=== PATIENT | female | born 1985 | race Caucasian/White ===

== ENCOUNTER 2018-11-15 21:15 | Emergency (ER) | payer SELFPAY ==
[2018-11-15 21:23] VITALS: BP 125/86; PULSE 83; TEMP 98.1; BMI 28.3
[2018-11-15 21:41] LABS: URINE APPEARANCE CLEAR; URINE BILIRUBIN NEGATIVE (NEGATIVE); URINE COLOR YELLOW; URINE GLUCOSE (UA) NEGATIVE (NEGATIVE); URINE KETONE NEGATIVE (NEGATIVE); URINE LEUK ESTERASE 2+ (NEGATIVE); URINE NITRITE NEGATIVE (NEGATIVE); URINE PROTEIN NEGATIVE (NEGATIVE); URINE UROBILINOGEN 0.2 mg/dL (0.2-1.0)
--- NOTE | 2018-11-15 22:04 | PDOC ---
History of Present Illness - General Chief Complaint: Urinary Problem Stated Complaint: POSSIBLE UTI Time Seen by Provider: 11/15/18 21:45 History Source: Patient Exam Limitations: No Limitations - History of Present Illness Travel History: No Initial Comments: 11/15/18 22:02 HISTORY OF PRESENT ILLNESS: 33-year-old woman past medical history of multiple urinary tract infections presents emergency department for evaluation of dysuria and urinary frequency for the past 2 days. Patient reports this is usually how her urinary tract infection start. Patient denies any fevers, chills , abdominal pain, nausea, vomiting, flank pain, hematuria, vaginal bleeding, vaginal discharge, constipation or diarrhea. No recent travel or sick contacts. PAST MEDICAL HISTORY: Denies past medical history SURGICAL HISTORY: Denies ALLERGIES: No known drug allergies REVIEW OF SYSTEMS General/Constitutional: Denies fever or chills. Denies weakness, weight change. HEENT: Denies change in vision. Denies ear pain or discharge. Denies sore throat. Cardiovascular: Denies chest pain or shortness of breath. Respiratory: Denies cough, wheezing, or hemoptysis. Gastrointestinal: Denies nausea, vomiting, diarrhea or constipation. Denies rectal bleeding. Genitourinary:see HPI Musculoskeletal: Denies joint or muscle swelling or pain. Denies neck or back pain. Skin and breasts: Denies rash or easy bruising. Neurologic: Denies headache, vertigo, loss of consciousness, or loss of sensation. Psychiatric: Denies depression or anxiety. Endocrine: Denies increased thirst. Denies abnormal weight change. Hematologic/Lymphatic: Denies anemia, easy bleeding, or history of blood clots. Allergic/Immunologic: Denies hives or skin allergy. Denies latex allergy. PHYSICAL EXAM General Appearance: Well-appearing, appropriately dressed. No apparent distress , no intoxication. Respiratory/Chest: Lungs CTAB. No shortness of breath, chest tenderness, respiratory distress, accessory muscle use. No crackles, rales, rhonchi, stridor , wheezing, dullness Cardiovascular: RRR. S1, S2. No JVD, murmur, bradycardia, tachycardia. Gastrointestinal/Abdominal: Normal bowel sounds. Abdomen soft, non-distended. No tenderness or rebound tenderness. No organomegaly, pulsatile mass, guarding, hernia, hepatomegaly, splenomegaly. No CVAT. Past History - Past Medical History Allergies/Adverse Reactions: Allergies Allergy/AdvReac Type Severity Reaction Status Date / Time No Known Allergies Allergy Unverified 03/09/16 09:56 Home Medications: Ambulatory Orders Nitrofurantoin Monohyd/M-Cryst [Macrobid -] 100 mg PO BID #14 capsule 11/15/18 Phenazopyridine HCl [Pyridium -] 100 mg PO PC #6 tablet 11/15/18 Cancer: No Cardiac Disorders: No CVA: No COPD: No CHF: No - Suicide/Smoking/Psychosocial Hx Smoking History: Never smoked *Physical Exam - Vital Signs Last Vital Signs Temp Pulse Resp BP Pulse Ox 98.1 F 83 20 125/86 98 11/15/18 21:18 11/15/18 21:18 11/15/18 21:18 11/15/18 21:18 11/15/18 21:18 ED Treatment Course - ADDITIONAL ORDERS Additional order review: Laboratory Results 11/15/18 11/15/18 21:24 21:24 Urine Color Yellow Urine Appearance Clear Urine pH 7.0 Ur Specific [place] 1.002 L Urine Protein Negative Urine Glucose (UA) Negative Urine Ketones Negative Urine Blood Negative Urine Nitrite Negative Urine Bilirubin Negative Urine Urobilinogen 0.2 Ur Leukocyte Esterase 2+ H Urine HCG, Qual Negative Medical Decision Making - Medical Decision Making 11/15/18 22:03 A/P: 33-year-old woman with urinary tract infection symptoms for 2 days No systemic or ascending signs of infection Urinalysis, urine , urine culture Reassess 11/15/18 22:32 Urinalysis is not suggestive of infection but is patient has had frequent UTIs with similar onset of symptoms I will treat with Macrobid as outpatient. *DC/Admit/Observation/Transfer Diagnosis at time of Disposition: Cystitis - Discharge Dispostion Disposition: HOME Condition at time of disposition: Stable Decision to Admit order: No - Prescriptions Prescriptions: Nitrofurantoin Monohyd/M-Cryst [Macrobid -] 100 mg PO BID #14 capsule Phenazopyridine HCl [Pyridium -] 100 mg PO PC #6 tablet - Referrals - Patient Instructions Additional Instructions: Rest, drink lots of fluids: Teas, water, soups, Pedialyte Saltwater gargles Steamy showers/seem to face break up mucus Avoid contact with others until fevers and cough resolved Lots of handwashing and good hygiene Continue [id number] medications for symptomatic relief Tylenol or Motrin for fever and pain Followup with private physician in one to 2 days as needed Return to emergency department for worsened symptoms, fevers, dehydration El rehana gaitanos lquidos: ts, agua, sopas, Pedialyte grgaras de agua salada Duchas Steamy / parecen enfrentar aflojar la mucosidad Evite el contacto con otras personas hasta que la fiebre y la tos resueltos Un montn de lavado de neema y la higiene Continuar isda-[id number] medicamentos para el alivio sintomtico Tylenol o Motrin para la fiebre y el dolor Followup con el [facility] en [place] o 2 mason segn sea necesario Regresar a urgencias por sntomas empeoraron, fiebres, deshidratacin - Post Discharge Activity
[2018-11-15 22:26] LABS: EPI CELLS 5 /HPF (0-5/HPF); HYALINE CASTS 0 /lpf (0-8); URINE BACTERIA FEW /hpf (NEGATIVE); URINE RBC 0 /hpf (0-4)
== END 2018-11-15 22:39 | disposition home or self-care (01) ==
LOC: JER 21:15 → JERFT 21:15
DX: N30.00 Acute cystitis without hematuria (principal); Z87.442 Personal history of urinary calculi
CPT/HCPCS: 81003; 84703; 87086; 99282-25

== ENCOUNTER 2019-03-19 17:31 | Emergency (ER) | payer SELFPAY ==
[2019-03-19 17:35] VITALS: TEMP 97.9; BMI 32.4
--- NOTE | 2019-03-19 18:06 | PDOC ---
History of Present Illness - History of Present Illness Initial Comments: 33 year old female with PMH of ovarian cysts presenting with epigastric and right upper quadrant pain radiating to her posterior right mid back for the past few days. States that she has a sharp RUQ/ epigastric pain worse with food and better when not eating. Denies any urinary symptoms or possibility of as she has an IUD. Although she does state that she has some irregular periods since having the IUD implanted. She has taken ibuporfen for her pain but states that it has made it worse. Denies fevers, chills, bad taste in mouth, burning in her throat, nausea, vomiting, diarrhea. 03/19/19 18:25 <Jenniffer Grullon - Last Filed: 03/19/19 18:25> <Floyd Velasquez - Last Filed: 03/19/19 21:27> - General Chief Complaint: Pain Stated Complaint: ABD PAIN Time Seen by Provider: 03/19/19 18:06 Past History - Past Medical History Cancer: No Cardiac Disorders: No CVA: No COPD: No CHF: No - Psycho Social/Smoking Cessation Hx Smoking History: Never smoked Information on smoking cessation initiated: No Hx Alcohol Use: No Drug/Substance Use Hx: No Substance Use Type: None <Jenniffer Grullon - Last Filed: 03/19/19 18:25> <Floyd Velasquez - Last Filed: 03/19/19 21:27> - Past Medical History Allergies/Adverse Reactions: Allergies Allergy/AdvReac Type Severity Reaction Status Date / Time No Known Allergies Allergy Unverified 03/19/19 17:35 Home Medications: Ambulatory Orders Nitrofurantoin Monohyd/M-Cryst [Macrobid -] 100 mg PO BID #14 capsule 11/15/18 Phenazopyridine HCl [Pyridium -] 100 mg PO PC #6 tablet 11/15/18 Review of Systems - Review of Systems Constitutional: No: See HPI, Chills, Diaphoresis, Fever HEENTM: No: Eye Pain, Blurred Vision, Tearing Respiratory: No: Cough, Orthopnea, Shortness of Breath Cardiac (ROS): No: Chest Pain, Edema, Irregular Heart Rate ABD/GI: No: Constipated, Diarrhea, Nausea, Vomiting : No: Burning, Dysuria, Discharge Musculoskeletal: No: Back Pain, Joint Pain <Ali,Khameinei - Last Filed: 03/19/19 18:25> *Physical Exam - Vital Signs Last Vital Signs Temp Pulse Resp BP Pulse Ox 97.9 F 86 17 136/85 99 03/19/19 17:33 03/19/19 17:33 03/19/19 17:33 03/19/19 17:33 03/19/19 17:33 <Jenniffer Grullon - Last Filed: 03/19/19 18:25> - Vital Signs Last Vital Signs Temp Pulse Resp BP Pulse Ox 97.9 F 86 17 136/85 99 03/19/19 17:33 03/19/19 17:33 03/19/19 17:33 03/19/19 17:33 03/19/19 17:33 <Esperanza Velasquezis - Last Filed: 03/19/19 21:27> ED Treatment Course - LABORATORY CBC & Chemistry Diagram: 03/19/19 18:35 03/19/19 18:35 - ADDITIONAL ORDERS Additional order review: Laboratory Results 03/19/19 03/19/19 03/19/19 18:35 18:35 18:35 PT with INR 12.40 INR 1.05 Sodium 139 Potassium 4.3 Chloride 109 H Carbon Dioxide 25 Anion Gap 5 L BUN 10.9 Creatinine 0.7 Est GFR (CKD-EPI)AfAm 133.81 Est GFR (CKD-EPI)NonAf 115.45 Random Glucose 81 Calcium 9.4 Total Bilirubin 0.2 AST 22 ALT 31 Alkaline Phosphatase 71 Total Protein 7.8 Albumin 4.2 Lipase 233 Urine Color Urine Appearance Urine pH Ur Specific [place] Urine Protein Urine Glucose (UA) Urine Ketones Urine Blood Urine Nitrite Urine Bilirubin Urine Urobilinogen Ur Leukocyte Esterase Urine WBC (Auto) Urine RBC (Auto) Urine Casts (Auto) U Epithel Cells (Auto) Urine Bacteria (Auto) Urine HCG, Qual Blood Type A POSITIVE Antibody Screen Negative 03/19/19 03/19/19 18:35 18:35 PT with INR INR Sodium Potassium Chloride Carbon Dioxide Anion Gap BUN Creatinine Est GFR (CKD-EPI)AfAm Est GFR (CKD-EPI)NonAf Random Glucose Calcium Total Bilirubin AST ALT Alkaline Phosphatase Total Protein Albumin Lipase Urine Color Yellow Urine Appearance Clear Urine pH 5.5 D Ur Specific [place] 1.005 L Urine Protein Negative Urine Glucose (UA) Negative Urine Ketones Negative Urine Blood 2+ H Urine Nitrite Negative Urine Bilirubin Negative Urine Urobilinogen 0.2 Ur Leukocyte Esterase Trace Urine WBC (Auto) 4 Urine RBC (Auto) 2 Urine Casts (Auto) 0 U Epithel Cells (Auto) 0.8 Urine Bacteria (Auto) 42.3 Urine HCG, Qual Negative Blood Type Antibody Screen 03/19/19 18:35 RBC 4.84 MCV 85.4 MCHC 32.7 RDW 14.0 MPV 9.8 Neutrophils % 65.9 Lymphocytes % 24.0 Monocytes % 6.6 Eosinophils % 3.1 Basophils % 0.4 - Medications Given in the ED: ED Medications Discontinued Medications Generic Name Dose Route Start Last Admin Trade Name Freq PRN Reason Stop Dose Admin Al Hydroxide/Mg Hydroxide 30 ml 03/19/19 18:24 03/19/19 18:47 Mylanta Oral Suspension - PO 03/19/19 18:25 30 ml ONCE ONE Administration Famotidine/Sodium Chloride 20 mg in 50 mls @ 100 mls/hr 03/19/19 18:24 18:47 Pepcid 20 Mg Premixed Ivpb - IVPB 03/19/19 18:53 100 mls/hr ONCE ONE Administration <Floyd Velasquez - Last Filed: 03/19/19 21:27> Medical Decision Making - Medical Decision Making 33 year old female with PMH of ovarian cyst removal presenting with ruq pain and epigastric pain after food. Although abdomen is non-tender, this is most concerning for cholelithiasis vs. gastritis. Bedside US positive for choleliths. 03/19/19 18:32 <Jenniffer Grullon - Last Filed: 03/19/19 18:25> Discharge <Jenniffer Grullon - Last Filed: 03/19/19 18:25> - Discharge Information Problems reviewed: Yes <Floyd Velasquez - Last Filed: 03/19/19 21:27> - Discharge Information Clinical Impression/Diagnosis: Epigastric pain Condition: Stable Disposition: HOME - Follow up/Referral Referrals: Romie Wick MD [Staff Physician] - - Patient Discharge Instructions Patient Printed Discharge Instructions: DI for Epigastric Pain Additional Instructions: take pepcid once fdaily, follow up with I. return immediately for worsening pain. Print Language: [place]
[2019-03-19] MEDS ORDERED: FAMOTIDINE 20 MG/50 ML IVPB 20 MG/50 ML MG IVPB ONE ×2 (18:24→18:43)
[2019-03-19] MEDS ORDERED: MAG HYDROX/AL HYDROX/SIMETH 30 ML UNIT-DOSE CUP PO ONE (18:24)
[2019-03-19] MEDS ORDERED: MAG HYDROX/AL HYDROX/SIMETH 30 ML UNIT-DOSE CUP ONE (18:42)
--- NOTE | 2019-03-19 18:49 | PDOC ---
Documentation entered by Sangita Maldonado SCRIBE, acting as scribe for Floyd Velasquez MD. Floyd Velasquez MD: This documentation has been prepared by the Joel schultz Adrianna, SCRIBE, under my direction and personally reviewed by me in its entirety. I confirm that the documentation accurately reflects all work, treatment, procedures, and medical decision making performed by me. Attending Attestation - Resident Resident Name: Jenniffer Grullon - ED Attending Attestation I have performed the following: I have examined & evaluated the patient, The case was reviewed & discussed with the resident, I agree w/resident's findings & plan, Exceptions are as noted - HPI HPI: The patient is a 33 year old female, with a significant PMH of ovarian cysts, who presents to the ED for evaluation of abdominal pain for a few days. Patient complains of sharp pain most prominent at the epigastric and RUQ region, that radiates to the right-side of her mid back. She endorses associated nausea and NBNB vomit, and notes her pain is exacerbated with eating and alleviated with not eating. Patient notes she has had irregular bleeding secondary to her IUD implantation. Otherwise, denies any acute complaints. Allergies: NKA, NKDA Surgical History: None reported Social History: Denies EtOH, tobacco, or illicit drug use - Physicial Exam PE: 03/19/19 18:47 Patient is awake and alert, well-nourished, in minimal distress Normocephalic, atraumatic PERRLA, EOMI, no scleral icterus CTA RRR Abdomen soft, nondistended, minimal epigastric and right upper quadrant tenderness to deep palpation, Hartmann's is negative Negative CVA tenderness bilaterally - Medical Decision Making 03/19/19 18:49 33-year-old female presents with epigastric and right upper quadrant pain, postprandial, with nausea and nonbloody, nonbilious vomiting. Patient is afebrile and nontoxic-appearing. DD is cholelithiasis versus cholecystitis versus gastritis. Will obtain CBC/CMP/lipase will obtain right upper quadrant ultrasound. Will reassess. Will hydrate. 03/19/19 21:24 Patient reassessed. Patient is resting comfortably. Serial abdominal exams reveal no focal tenderness at this time. Patient tolerates p.o. CBC/CMP within normal limit. Lipase is negative. Right upper quadrant ultrasound reveals no evidence of gallstones. Will discharge patient with Pepcid with GI follow-up.
[2019-03-19 19:16] LABS: BASO % 0.4 % (0-2.0); EOS % 3.1 % (0-4.5); HEMATOCRIT 41.4 % (32.4-45.2); HEMOGLOBIN 13.5 GM/dL (10.7-15.3); MCH 27.9 pg (25.7-33.7); MCHC 32.7 g/dl (32.0-36.0); MEAN CELL VOLUME 85.4 fl (80-96); MEAN PLT VOLUME 9.8 fl (7.5-11.1); MONO % 6.6 % (3.8-10.2); NEUT % 65.9 % (42.8-82.8); PLATELET COUNT 322 K/MM3 (134-434); RBC 4.84 M/mm3 (3.60-5.2)
[2019-03-19 19:21] LABS: EPI CELLS 0.8 /HPF (0-5/HPF); HYALINE CASTS 0 /lpf (0-8); PH,URINE 5.5 (5.0-8.0); URINE APPEARANCE CLEAR; URINE BACTERIA 42.3 /hpf (NEGATIVE); URINE BILIRUBIN NEGATIVE (NEGATIVE); URINE COLOR YELLOW; URINE GLUCOSE (UA) NEGATIVE (NEGATIVE); URINE KETONE NEGATIVE (NEGATIVE); URINE LEUK ESTERASE TRACE (NEGATIVE); URINE NITRITE NEGATIVE (NEGATIVE); URINE PROTEIN NEGATIVE (NEGATIVE); URINE RBC 2 /hpf (0-4); URINE UROBILINOGEN 0.2 mg/dL (0.2-1.0); URINE WBC 4 /hpf (0-5)
[2019-03-19 19:24] LABS: INR 1.05 (0.83-1.09); PROTHROMBIN TIME (PATIENT) 12.4 SEC (9.7-13.0)
[2019-03-19 19:45] LABS: ALBUMIN 4.2 g/dl (3.4-5.0); BILIRUBIN,TOTAL 0.2 mg/dL (0.2-1); BLOOD UREA NITROGEN 10.9 mg/dL (7-18); CALCIUM 9.4 mg/dL (8.5-10.1); CREATININE 0.7 mg/dL (0.55-1.3); POTASSIUM 4.3 mmol/L (3.5-5.1); TOT PROT 7.8 g/dl (6.4-8.2)
[2019-03-19 21:34] VITALS: BP 130/88; PULSE 80
== END 2019-03-19 21:45 | disposition home or self-care (01) ==
LOC: JER 17:31
PROC: 3E033GC Introduction of Other Therapeutic Substance into Peripheral Vein, Percutaneous Approach (ICD-10-PCS; principal; 2019-03-19)
DX: K80.20 Calculus of gallbladder without cholecystitis without obstruction (principal)
CPT/HCPCS: 36415; 76705-TC; 80053; 81003; 83690; 84703; 85025; 85610; 86850; 86900; 86901; 99282-25